=== PATIENT | female | born 1960 | race Caucasian/White ===

== ENCOUNTER 2017-01-24 10:57 | Emergency (ER) | payer OTHER ==
--- NOTE | 2017-01-24 12:44 | ED ORDER SUMMARY ---
..... Patient: NHI BEACH OrderSheet [facility] VisitID: [id number] [address] [place] [address] 56y, F Registration Date/Time: 01/24/2017 ORDER SHEET Weight: 52.6 kg Allergies: No Known Drug Allergy GENERAL ORDERS: MEDICATION ORDERS: Toradol IM 60 mg (NOW) (11:56 01/24/2017 Jerel Fierro) (12:17 Kyler Napier) IV FLUIDS: ORDER SHEET NOTES: [Electronically signed by Bismark Sahu Dr. (12:47 01/24/2017)] [Electronically signed by Jeannine Kraus R.N. (19:02 01/24/2017)] [Electronically locked/signed by Jeannine Kraus R.N. (19:02 01/24/2017)]
--- NOTE | 2017-01-24 12:44 | ED CLINICAL REPORT ---
Clinical Report - Physicians/Mid Levels [facility] [address] [place] [place] [address] 01/24/2017 11:01 Patient: NHI BEACH Time Seen: 1107; initial patient contact. Arrived- By private vehicle. Historian- patient. HISTORY OF PRESENT ILLNESS Chief Complaint: PRESCRIPTION REFILL REQUEST- out of medication 1 day. Patient's primary care provider contacted Spilled ~ 100 pain pills in toilet, has pain contract w/ PCP, would not refill. At its maximum, severity described as mild. When seen in the E.D., severity described as mild. Modifying factors. Not worsened by anything. Not relieved by anything. This started today and is still present. (Low back pain(chronic)). Similar symptoms previously: None. Recent medical care: Not recently seen/assessed. REVIEW OF SYSTEMS No nausea, vomiting or chills. She has had mild lower back pain (Chronic). No sensory loss, motor weakness or symptom related to bladder or bowel dysfunction. All systems otherwise negative, except as recorded above. PAST HISTORY Fibromyalgia. Depression. Anxiety. Back pain. ADDITIONAL SURGERIES: Back surgery. Hysterectomy. Carpal Tunnel Surgery. Medications: DULoxetine HCl Oral. Amitriptyline HCl Oral. ClonazePAM Oral (Tablet 1 mg), 2x a day. Percocet Oral (Tablet 10-325 mg), PRN (takes up to 4 tablets per day.). Allergies: No Known Drug Allergy. SOCIAL HISTORY Current every day heavy tobacco smoker. Occasional alcohol use. History of drug use: marijuana. ADDITIONAL NOTES The nursing notes have been reviewed. PHYSICAL EXAM Vital Signs: 01/24/2017 11:09 BP: 123/76. HR: 86. RR: 16. O2 saturation: 96%. Temp: 98 F. Pain level now: 8/10. Have been reviewed as normal. Appearance: Alert. No acute distress. Eyes: Eyes normal inspection. Back: Normal inspection. (Neg SLR's bilaterally). Neuro: Oriented X 3. No motor deficit. No sensory deficit. PROGRESS AND PROCEDURES Disposition: Discharged home in good and improved condition. Condition: good. CLINICAL IMPRESSION Chronic nontraumatic lumbar back pain associated with degenerative disc disease of the lumbar spine. No radiculopathy or neurological deficit. Medication refill. INSTRUCTIONS Your Current Medications: CONTINUE TAKING THE FOLLOWING MEDICATIONS: Amitriptyline HCl Oral. ClonazePAM Oral : Tablet 1 mg, 2x a day. DULoxetine HCl Oral. Percocet Oral : Tablet 10-325 mg, PRN, takes up to 4 tablets per day. Prescription Medications: Tramadol 50 mg: take 1 orally every 6 hours as needed for pain and stiffness. Do not take more than 8 tablets in a 24 hour period. Dispense twenty (20). No refills. Follow-up: Follow up with your doctor as needed. Call for an appointment. Screening today revealed the patient's blood pressure to be in the pre-hypertensive range. The patient should follow up with a primary care provider for blood pressure management. (Electronically signed by Bismark Sahu Dr. 01/24/2017 12:47)
--- NOTE | 2017-01-24 12:44 | ED ORDER SUMMARY ---
..... Patient: NHI BEACH OrderSheet [facility] VisitID: [id number] [address] [place] [address] 56y, F Registration Date/Time: 01/24/2017 ORDER SHEET Weight: 52.6 kg Allergies: No Known Drug Allergy GENERAL ORDERS: MEDICATION ORDERS: Toradol IM 60 mg (NOW) (11:56 01/24/2017 Jerel Fierro) (12:17 Kyler Napier) IV FLUIDS: ORDER SHEET NOTES: [Electronically signed by Bismark Sahu Dr. (12:47 01/24/2017)] [Electronically signed by Jeannine Kraus R.N. (19:02 01/24/2017)] [Electronically locked/signed by Jeannine Kraus R.N. (19:02 01/24/2017)]
--- NOTE | 2017-01-24 12:44 | ED NURSING NOTES ---
Clinical Report - Nurses [facility] [address] [place] [address] 01/24/2017 11:01 Patient: NHI BEACH TRIAGE Triage time 11:10 Jan 24 2017. Acuity: LEVEL 4. Chief Complaint: (lost pain meds). Alert. No acute distress. SEPSIS SCREEN: Sepsis Screen. Negative (no infection suspected/documented). LUCY COMA SCORE: [place] Coma Scale: 15- eyes open spontaneously (4); best verbal response- oriented x 4 (5); best motor response- obeys commands (6). --11:20 Jeannine Kraus R.N. 11:09 01/24/17. BP: 123/76. HR: 86. RR: 16. O2 saturation: 96%. Temp: 98 F. Pain level now: 02/28. --11:20 Jeannine Kruas R.N. Weight: 52.6 kg. Height/Length: 65 inches. BMI: 19.3. --11:19 Jeannine Kraus R.N. Medications Percocet Oral (Tablet 10-325 mg), PRN (takes up to 4 tablets per day.). --11:12 Jeannine Kraus R.N. ClonazePAM Oral (Tablet 1 mg), 2x a day. --11:12 Jeannine Kraus R.N. Amitriptyline HCl Oral. --11:13 Jeannine Kraus R.N. DULoxetine HCl Oral. --11:14 Jeannine Kraus R.N. Allergies No Known Drug Allergy. --11:15 Jeannine Kraus R.N. History Arrived by private vehicle. Historian: patient. ( pt states that her cat bumped her and she lost her pain meds in toilet. pt states that she thinks she lost about 100 10mg percocet.). Treatment DIRECTOR PRODUCT SAFETY: None. PAST MEDICAL HX: Immunizations: up-to-date. The patient has had a hysterectomy. Denies current . SOCIAL HX: Current every day heavy tobacco smoker (cigarette)- less than 1 pack per day. Occasional alcohol use. History of drug use: marijuana. No infectious disease exposure. SELF HARM ASSESSMENT: A self harm assessment was performed. The patient answered "no" to the question "Do you have thoughts of harming or killing yourself?" and "Have you recently had thoughts about harming or killing others?". FALL RISK ASSESSMENT: Fall risk assessment completed. No fall risk identified. NUTRITIONAL RISK ASSESSMENT: The nutritional risk assessment revealed no deficiencies. FUNCTIONAL ASSESSMENT: Functional assessment: no impairments noted. LEARNING NEEDS ASSESSMENT: The learning needs assessment revealed no barriers. ABUSE ASSESSMENT: Abuse assessment: The patient was asked "Do you feel safe in your home?". SKIN INTEGRITY ASSESSMENT: Skin integrity risk assessment completed. No skin integrity risk identified. --11:20 Jeannine Kraus R.N. PROBLEMS: Fibromyalgia. Depression. Anxiety. Back pain. --11:17 Jeannine Kraus R.N. ADDITIONAL SURGERIES: Back surgery. Hysterectomy. --11:17 Jeannine Kraus R.N. Carpal Tunnel Surgery. --11:18 Jeannine Kraus R.N. Interventions ID band on patient. To room. --11:20 Jeannine Kraus R.N. PHYSICAL ASSESSMENT Ambulatory to room. GENERAL / NEURO / PSYCH: Alert. Oriented X 4. Appears anxious. HEENT: No facial asymmetry noted. Mucous membranes are pink. RESPIRATORY: Respirations not labored. Chest nontender. CVS: Capillary refill less than 2 seconds. GI / : Abdomen soft and nontender. SKIN: Skin is warm and dry. --11:21 Jeannine Kraus R.N. NURSING PROGRESS NOTES Head of bed elevated. Patient identifiers checked. Call light placed in reach. Bed placed in lowest position. Brakes of bed on. --11:21 Jeannine Kraus R.N. 12:15 01/24/2017 Toradol (Ketorolac Tromethamine) IM 60 mg given. Given in the right ventral gluteus (split dose). Allergies verified and confirmed 5 rights. --12:17 Knebel, Jeannine, R.N. DISPOSITION / DISCHARGE Departure time: 13:02 [place] 06 2017. Condition at departure: unchanged. The patient was discharged home. She left the Emergency Department ambulatory. ( patient left without discharge instructions room was empty when this nurse went in to discharge patient. notified Dr. Sahu and Geneva VILLASEÑOR.). --13:04 Jeannine Kraus R.N. Departure time: :Jan 24 2017. Condition at departure: unchanged. No learning barriers present. Discharge instructions provided and reviewed with the patient. Reviewed medication(s) side effects, precautions, dosing and course information. Prescription(s) given to the patient. Reviewed referral to a primary care physician for followup. The patient was discharged home. She left the Emergency Department ambulatory and via private vehicle. Patient driving. ( pt returned to room stating that she had "gone outside for a cigarette"). FALL RISK ASSESSMENT: Fall risk assessment completed. No fall risk identified. --13:22 Jeannine Kraus R.N. 13:22 01/24/17. BP: 114/81. HR: 95. RR: 16. O2 saturation: 98%. Pain level now: 01/28. --13:22 Jeannine Kraus R.N. Locked/Released at 01/24/2017 19:02 by Jeannine Kraus R.N.
--- NOTE | 2017-01-24 19:02 | ED DISCHARGE INSTRUCTIONS ---
Patient: NHI BEACH General Instructions [facility] VisitID: [id number] [place] [address] 56y, F Registration Date/Time: 01/24/2017 Chronic nontraumatic lumbar back pain associated with degenerative disc disease of the lumbar spine. No radiculopathy or neurological deficit. Medication refill. INSTRUCTIONS Your Current Medications: CONTINUE TAKING THE FOLLOWING MEDICATIONS: Amitriptyline HCl Oral. ClonazePAM Oral : Tablet 1 mg, 2x a day. DULoxetine HCl Oral. Percocet Oral : Tablet 10-325 mg, PRN, takes up to 4 tablets per day. Prescription Medications: Tramadol 50 mg: take 1 orally every 6 hours as needed for pain and stiffness. Do not take more than 8 tablets in a 24 hour period. Dispense twenty (20). No refills. Follow-up: Follow up with your doctor as needed. Call for an appointment. Screening today revealed the patient's blood pressure to be in the pre-hypertensive range. The patient should follow up with a primary care provider for blood pressure management. ADDITIONAL INFORMATION Back Pain [Acute Or Chronic] Back pain is usually caused by an injury to the muscles or ligaments of the spine. Sometimes the disks that separate each bone in the spine may bulge and cause pain by pressing on a nearby nerve. Back pain may also appear after a sudden twisting/bending force (such as in a car accident), after a simple awkward movement, or lifting something heavy with poor body positioning. In either case, muscle spasm is often present and adds to the pain. Acute back pain usually gets better in one to two weeks. Back pain related to disk disease, arthritis in the spinal joints or spinal stenosis (narrowing of the spinal canal) can become chronic and last for months or years. Unless you had a physical injury (for example, a car accident or fall) X-rays are usually not ordered for the initial evaluation of back pain. If pain continues and does not respond to medical treatment, x-rays and other tests may be performed at a later time. Home Care: You may need to stay in bed the first few days. But, as soon as possible, begin sitting or walking to avoid problems with prolonged bed rest (muscle weakness, worsening back stiffness and pain, blood clots in the legs). When in bed, try to find a position of comfort. A firm mattress is best. Try lying flat on your back with pillows under your knees. You can also try lying on your side with your knees bent up towards your chest and a pillow between your knees. Avoid prolonged sitting. This puts more stress on the lower back than standing or walking. During the first two days after injury, apply an ICE PACK to the painful area for 20 minutes every 2-4 hours. This will reduce swelling and pain. HEAT (hot shower, hot bath or heating pad) works well for muscle spasm. You can start with ice, then switch to heat after two days. Some patients feel best alternating ice and heat treatments. Use the one method that feels the best to you. You may use acetaminophen (Tylenol) or ibuprofen (Motrin, Advil) to control pain, unless another pain medicine was prescribed. [NOTE: If you have chronic liver or kidney disease or ever had a stomach ulcer or GI bleeding, talk with your doctor before using these medicines.] Be aware of safe lifting methods and do not lift anything over 15 pounds until all the pain is gone. Follow Up with your doctor or this facility if your symptoms do not start to improve after one week. Physical therapy may be needed. [NOTE: If X-rays were taken, they will be reviewed by a radiologist. You will be notified of any new findings that may affect your care.] Get Prompt Medical Attention if any of the following occur: Pain becomes worse or spreads to your legs Weakness or numbness in one or both legs Loss of bowel or bladder control Numbness in the groin or genital area Tramadol Hydrochloride Oral tablet What is this medicine? TRAMADOL (TRA ma dole) is a pain reliever. It is used to treat moderate to severe pain in adults. How should I use this medicine? Take this medicine by mouth with a full glass of water. Follow the directions on the prescription label. If the medicine upsets your stomach, take it with food or milk. Do not take more medicine than you are told to take. Talk to your irrigator valve pipe regarding the use of this medicine in children. Special care may be needed. What side effects may I notice from receiving this medicine? Side effects that you should report to your doctor or health field care coordinator as soon as possible: allergic reactions like skin rash, itching or hives, swelling of the face, lips, or tongue breathing difficulties, wheezing confusion itching light headedness or fainting spells redness, blistering, peeling or loosening of the skin, including inside the mouth seizures Side effects that usually do not require medical attention (report to your doctor or health field care coordinator if they continue or are bothersome): constipation dizziness drowsiness headache nausea, vomiting What may interact with this medicine? Do not take this medicine with any of the following medications: MAOIs like Carbex, Eldepryl, Marplan, Nardil, and Parnate This medicine may also interact with the following medications: alcohol or medicines that contain alcohol antihistamines benzodiazepines bupropion carbamazepine or oxcarbazepine clozapine cyclobenzaprine digoxin furazolidone linezolid medicines for depression, anxiety, or psychotic disturbances medicines for migraine headache like almotriptan, eletriptan, frovatriptan, naratriptan, rizatriptan, sumatriptan, zolmitriptan medicines for pain like pentazocine, buprenorphine, butorphanol, meperidine, nalbuphine, and propoxyphene medicines for sleep muscle relaxants naltrexone phenobarbital phenothiazines like perphenazine, thioridazine, chlorpromazine, mesoridazine, fluphenazine, prochlorperazine, promazine, and trifluoperazine procarbazine warfarin What if I miss a dose? If you miss a dose, take it as soon as you can. If it is almost time for your next dose, take only that dose. Do not take double or extra doses. Where should I keep my medicine? Keep out of the reach of children. Store at room temperature between 15 and 30 degrees C (59 and 86 degrees F). Keep container tightly closed. Throw away any unused medicine after the expiration date. What should I tell my health care provider before I take this medicine? They need to know if you have any of these conditions: brain tumor depression drug abuse or addiction head injury if you frequently drink alcohol containing drinks kidney disease or trouble passing urine liver disease lung disease, asthma, or breathing problems seizures or epilepsy suicidal thoughts, plans, or attempt; a previous suicide attempt by you or a family member an unusual or allergic reaction to tramadol, codeine, other medicines, foods, dyes, or preservatives or trying to get breast-feeding What should I watch for while using this medicine? Tell your doctor or health field care coordinator if your pain does not go away, if it gets worse, or if you have new or a different type of pain. You may develop tolerance to the medicine. Tolerance means that you will need a higher dose of the medicine for pain relief. Tolerance is normal and is expected if you take this medicine for a long time. Do not suddenly stop taking your medicine because you may develop a severe reaction. Your body becomes used to the medicine. This does NOT mean you are addicted. Addiction is a behavior related to getting and using a drug for a non-medical reason. If you have pain, you have a medical reason to take pain medicine. Your doctor will tell you how much medicine to take. If your doctor wants you to stop the medicine, the dose will be slowly lowered over time to avoid any side effects. You may get drowsy or dizzy. Do not drive, use machinery, or do anything that needs mental alertness until you know how this medicine affects you. Do not stand or sit up quickly, especially if you are an older patient. This reduces the risk of dizzy or fainting spells. Alcohol can increase or decrease the effects of this medicine. Avoid alcoholic drinks. You may have constipation. Try to have a bowel movement at least every 2 to 3 days. If you do not have a bowel movement for 3 days, call your doctor or health field care coordinator. Your mouth may get dry. Chewing sugarless gum or sucking hard candy, and drinking plenty of water may help. Contact your doctor if the problem does not go away or is severe. You have been given the following additional information: Back Pain (Acute Or Chronic) Tramadol Hydrochloride Oral tablet (Electronically signed by Bismark Sahu Dr. 01/24/2017 12:47)
--- NOTE | 2017-01-24 19:02 | ED MAR SUMMARY ---
..... Medication Administration Record [facility] [address] [place] [address] Patient: NHI BEACH Visit ID: [id number] 56y, F Weight: 52.6 kg Height/Length: 65 in BMI: 19.3 ALLERGIES: No Known Drug Allergy Given 12:15 01/24/2017 Jeannine Kraus R.N. Medication Administered: TORADOL [IM] (KETOROLAC TROMETHAMINE), Dose: 60 mg IM. Medication Ordered: Toradol IM 60 mg (NOW).
--- NOTE | 2017-01-24 19:02 | ED MAR SUMMARY ---
..... Medication Administration Record [facility] [address] [place] [address] Patient: NHI BEACH Visit ID: [id number] 56y, F Weight: 52.6 kg Height/Length: 65 in BMI: 19.3 ALLERGIES: No Known Drug Allergy Given 12:15 01/24/2017 Jeannine Kraus R.N. Medication Administered: TORADOL [IM] (KETOROLAC TROMETHAMINE), Dose: 60 mg IM. Medication Ordered: Toradol IM 60 mg (NOW).
--- NOTE | 2017-01-24 19:03 | ED MED RECONCILIATION SUMMARY ---
Patient: NHI BEACH Medication Reconciliation Report [facility] VisitID: [id number] [place] [address] 56y, F Registration Date/Time: 01/24/2017 Weight: 52.6 kg Height/Length: 65 in. BMI: 19.3 ALLERGIES: No Known Drug Allergy The patient's Home Medications are listed below: CONTINUE TAKING THE FOLLOWING MEDICATIONS: Amitriptyline HCl Oral ClonazePAM Oral (1 mg), 2x a day DULoxetine HCl Oral Percocet Oral (10-325 mg), PRN, takes up to 4 tablets per day. The source(s) of the original Home Medication information: Not obtained. The following Medications were given to the patient in the Emergency Department: Toradol [IM] IM 60 mg, administered: 01/24/2017 12:15:00 PM The following Medications were prescribed to the patient: Tramadol 50 mg: take 1 orally every 6 hours as needed for pain and stiffness. Do not take more than 8 tablets in a 24 hour period. Dispense twenty (20). No refills. -- Bismark Sahu Dr.
--- NOTE | 2017-01-24 19:03 | ED MED RECONCILIATION SUMMARY ---
Patient: NHI BEACH Medication Reconciliation Report [facility] VisitID: [id number] [place] [address] 56y, F Registration Date/Time: 01/24/2017 Weight: 52.6 kg Height/Length: 65 in. BMI: 19.3 ALLERGIES: No Known Drug Allergy The patient's Home Medications are listed below: CONTINUE TAKING THE FOLLOWING MEDICATIONS: Amitriptyline HCl Oral ClonazePAM Oral (1 mg), 2x a day DULoxetine HCl Oral Percocet Oral (10-325 mg), PRN, takes up to 4 tablets per day. The source(s) of the original Home Medication information: Not obtained. The following Medications were given to the patient in the Emergency Department: Toradol [IM] IM 60 mg, administered: 01/24/2017 12:15:00 PM The following Medications were prescribed to the patient: Tramadol 50 mg: take 1 orally every 6 hours as needed for pain and stiffness. Do not take more than 8 tablets in a 24 hour period. Dispense twenty (20). No refills. -- Bismark Sahu Dr.
== END 2017-01-24 13:20 | disposition home or self-care (01) ==
LOC: ED SRH 10:57
DX: M51.36 Other intervertebral disc degeneration, lumbar region (principal); G89.29 Other chronic pain; Z79.891 Long term (current) use of opiate analgesic; Z79.899 Other long term (current) drug therapy; Z76.0 Encounter for issue of repeat prescription